=== PATIENT | female | born 1935 ===

== ENCOUNTER 2017-04-04 20:47 | Emergency (ER) | payer MEDICARE, MEDICAID ==
[2017-04-04 23:21] LABS: BASO # 0.1 K/uL (0.0-0.2); BASO % 0.7 % (0.0-2.0); EOS # 0.1 K/uL (0.0-0.7); EOS % 1.2 % (0.0-4.0); HEMATOCRIT 32.1 % (34.0-47.0); LYMPH # 1.4 K/uL (1.0-4.3); LYMPH % 18.2 % (20.0-40.0); MEAN CELL VOLUME 87.3 fL (81.0-99.0); MEAN CORPUSCULAR HEMOGLOBIN 28.9 pg (27.0-31.0); MEAN CORPUSCULAR HGB CONC 33.1 g/dL (33.0-37.0); MEAN PLATELET VOLUME 10.1 fL (7.2-11.7); MONO # 0.6 K/uL (0.0-0.8); MONO % 8.4 % (0.0-10.0); RED CELL DISTRIBUTION WIDTH 14.9 % (11.5-14.5); WHITE BLOOD COUNT 7.6 K/uL (4.8-10.8)
[2017-04-04 23:44] LABS: CHLORIDE 103 mmol/L (98-107); SODIUM 137 mmol/L (132-148)
[2017-04-04 23:45] LABS: POTASSIUM 4.3 mmol/L (3.6-5.2)
[2017-04-04 23:46] LABS: GFR AFRICAN-AMERICAN > 60
[2017-04-04 23:47] LABS: ALKALINE PHOSPHATASE 75 U/L (38-126); ALT/SGPT 24 U/L (9-52); BLOOD UREA NITROGEN 25 mg/dL (7-17); GLUCOSE,RANDOM 89 mg/dL (65-105)
[2017-04-04 23:51] LABS: ALB/GLOB RATIO 1.5 (1.0-2.1); AST/SGOT 27 U/L (14-36); BILIRUBIN,TOTAL 0.5 mg/dL (0.2-1.3); CARBON DIOXIDE 26 mmol/L (22-30); TOTAL PROTEIN 6.7 g/dL (6.3-8.3)
--- NOTE | 2017-04-05 00:08 | C.PDOC ---
History Of Present Illness pt was hot in the house and started to sweat. Denies any chest pain now. Speaking in complete sentences. No f/c/n/v. Feels thirsty Time Seen by Provider: 04/05/17 00:08 Chief Complaint (Nursing): Chest Pain History Per: Patient History/Exam Limitations: no limitations Onset/Duration Of Symptoms: Hrs Current Symptoms Are (Timing): Gone Context: Other Severity: None Pain Scale Rating Of: 0 Modifying Factors: None Exacerbating Factors: None Alleviating Factors: None Recent travel outside of the [place]: No Additional History Per: Family Past Medical History Reviewed: Historical Data, Nursing Documentation, Vital Signs Vital Signs: Last Vital Signs Temp 98.6 F 04/04/17 21:09 Pulse 80 04/04/17 21:09 Resp 20 04/04/17 21:09 BP 145/74 04/04/17 21:09 Pulse Ox 97 04/05/17 01:42 - Medical History PMH: Arthritis, HTN, Hypercholesterolemia Surgical History: Hernia Repair - [facility] Procedures INCIS HERNIA REPAIR-GRFT (01/27/00) OTHER SKIN & SUBQ I D (07/18/14) Family History: States: Unknown Family Hx - Social History Hx Tobacco Use: No Hx Alcohol Use: No Hx Substance Use: No - Immunization History Hx Tetanus Toxoid Vaccination: No Hx Influenza Vaccination: Yes (07/21/2016) Hx Pneumococcal Vaccination: Yes (2014) Review Of Systems Constitutional: Negative for: Fever, Chills Eyes: Negative for: Redness Cardiovascular: Negative for: Chest Pain Respiratory: Positive for: Shortness of Breath Gastrointestinal: Positive for: Nausea. Negative for: Vomiting, Abdominal Pain Genitourinary: Negative for: Dysuria Musculoskeletal: Negative for: Back Pain Skin: Negative for: Rash, Lesions, Jaundice Neurological: Negative for: Weakness Psych: Negative for: Anxiety Physical Exam - Physical Exam Appears: Non-toxic, No Acute Distress Skin: Warm, Dry Head: Normacephalic Eye(s): bilateral: Normal Inspection Oral Mucosa: Dry Neck: Trachea Midline, Supple Chest: Symmetrical Cardiovascular: Rhythm Regular Respiratory: No Rales, No Rhonchi, No Wheezing Gastrointestinal/Abdominal: Soft, No Tenderness, No Distention Back: No CVA Tenderness Extremity: Normal ROM Extremity: Bilateral: Atraumatic Neurological/Psych: Oriented x3, Normal Speech, Normal Cognition Gait: With Assistance (cane) ED Course And Treatment - Laboratory Results Result Diagrams: 04/04/17 23:16 04/04/17 23:16 ECG: Interpreted By Me, Viewed By Me ECG Rhythm: Sinus Rhythm (74), Nonspecific Changes O2 Sat by Pulse Oximetry: 97 Pulse Ox Interpretation: Normal - Radiology CXR: Interpreted by Me, Viewed By Me CXR Interpretation: No: Infiltrates, Fracture, Pnemothorax Medical Decision Making Medical Decision Making: I considered the following diagnoses: acute coronary syndrome, pulmonary embolism, lower respiratory infection, aortic dissection/aneurysm, pneumothorax , pericarditis, esophagitis/GERD, zoster and esophageal rupture but found them to be unlikely based on the history, physical exam, and diagnostics. My conclusions regarding the unlikely diagnoses were based on: the absence of significant EKG abnormalities, the lack of suggestive x-ray findings, the absence of significant abnormalities on cardiac monitoring, the absence of asymmetric pulses. Upon provider reevaluation patient is feeling better, is medically stable, and requires no further treatment in the ED at this time. Patient will be discharged home . Counseling was provided and all questions were answered regarding diagnosis and need for follow up with dr live. There is agreement to discharge plan. Return if symptoms persist or worsen. Disposition Counseled Patient/Family Regarding: Studies Performed, Diagnosis, Need For Followup - Disposition Disposition: HOME/ ROUTINE Disposition Time: 00:08 Condition: FAIR Additional Instructions: Please return if symptoms recur Instructions: Dehydration (DC) - Clinical Impression Clinical Impression: Dehydration
[2017-04-05] MEDS ORDERED: Aspirin 325 mg EC Tablets PO STA (00:27)
[2017-04-05 02:09] LABS: RBC URINE 1 /hpf (0-3); URINE BILIRUBIN NEGATIVE (NEGATIVE); URINE BLOOD NEGATIVE (NEGATIVE); URINE COLOR Yellow (YELLOW); URINE GLUCOSE (UA) NORMAL (Normal); URINE KETONE NEGATIVE (NEGATIVE); URINE LEUKOCYTE ESTERASE 1+ Leu/uL (Negative); URINE PROTEIN NEGATIVE (NEGATIVE); URINE UROBILINOGEN NORMAL mg/dL (0.2-1.0); WBC URINE 8 /hpf (0-5)
[2017-04-05 02:16] VITALS: BP 162/77; PULSE 73; RESP 16; TEMP 97.8; O2SAT 99
--- NOTE | 2017-04-05 09:36 | RAD ---
PROCEDURE: CHEST RADIOGRAPH, 1 VIEW HISTORY: Chest pain COMPARISON: 11/07/2015. FINDINGS: LUNGS: The lungs are well inflated and clear. PLEURA: No pneumothorax or pleural fluid seen. CARDIOVASCULAR: Normal. OSSEOUS STRUCTURES: No significant abnormalities. VISUALIZED UPPER ABDOMEN: Normal. OTHER FINDINGS: None. IMPRESSION: No active pulmonary disease.
== END 2017-04-05 02:16 | disposition home or self-care (01) ==
LOC: C.ER 20:47
DX: E86.0 Dehydration (principal)

== ENCOUNTER 2018-06-01 10:17 | Emergency (ER) | payer MEDICARE, MEDICAID ==
[2018-06-01 10:26] VITALS: BMI 25.4
[2018-06-01 10:30] VITALS: TEMP 98.2
--- NOTE | 2018-06-01 10:41 | C.PDOC ---
History Of Present Illness 83 y/o female with PMHx significant for hypertension and osteoarthritis, presents to the ED complaining of pain and swelling to the bilateral lower extremities, greater on the left, for 1 month. She notes the left lower extremity becomes very swollen, tight, and painful at the end of each day. Requesting a bilateral doppler study. States she gets them occasionally to check her circulation. Pain is described as constant, worse at night, and rated a 4/10. No fever, chills, nausea, vomiting, chest pain, or SOB. Time Seen by Provider: 06/01/18 10:40 Chief Complaint (Nursing): Lower Extremity Problem/Injury History Per: Patient History/Exam Limitations: no limitations Onset/Duration Of Symptoms: Days Current Symptoms Are (Timing): Still Present Pain Scale Rating Of: 4 Past Medical History Reviewed: Historical Data, Nursing Documentation, Vital Signs Vital Signs: Last Vital Signs Temp 98.2 F 06/01/18 10:26 Pulse 91 H 06/01/18 10:26 Resp 18 06/01/18 10:26 BP 121/79 06/01/18 10:26 Pulse Ox 96 06/01/18 12:42 - Medical History PMH: Arthritis, HTN, Hypercholesterolemia Surgical History: Hernia Repair - [facility] Procedures INCIS HERNIA REPAIR-GRFT (01/27/00) OTHER SKIN & SUBQ I D (07/18/14) Family History: States: Unknown Family Hx - Social History Hx Tobacco Use: No Hx Alcohol Use: No Hx Substance Use: No - Immunization History Hx Tetanus Toxoid Vaccination: No Hx Influenza Vaccination: No (07/21/2016) Hx Pneumococcal Vaccination: No (2014) Review Of Systems Except As Marked, All Systems Reviewed And Found Negative. Constitutional: Negative for: Fever, Chills Cardiovascular: Negative for: Chest Pain Respiratory: Negative for: Shortness of Breath Gastrointestinal: Negative for: Nausea, Vomiting Musculoskeletal: Positive for: Leg Pain (and swelling to bilateral lower extremities, left greater than right) Neurological: Negative for: Weakness, Numbness, Incoordination Physical Exam - Physical Exam Appears: Non-toxic, No Acute Distress, Other (Mildly obese) Skin: Normal Color, Warm, No Rash Head: Atraumatic, Normacephalic Eye(s): bilateral: Normal Inspection Oral Mucosa: Moist Neck: Normal ROM, Supple Chest: Symmetrical Cardiovascular: Rhythm Regular, No Murmur Respiratory: Normal Breath Sounds, No Rales, No Rhonchi, No Wheezing Gastrointestinal/Abdominal: Soft, No Tenderness, No Distention Extremity: Normal ROM, Calf Tenderness (Mild tenderness to posterior left calf) , No Deformity, Swelling (Left lower extremity with non-pitting edema from the knee down into the foot) Pulses: Left Dorsalis Pedis: Normal, Right Dorsalis Pedis: Normal Neurological/Psych: Oriented x3, Normal Speech Gait: Steady (patient is ambulatory) ED Course And Treatment O2 Sat by Pulse Oximetry: 96 (RA) Pulse Ox Interpretation: Normal Medical Decision Making Medical Decision Making: Impression: Lower extremity swelling, left greater than right Plan: * Bilateral Doppler studies ordered Progress/Updates: Doppler studies negative for DVT. Patient informed of results, and provided with copy of report. Patient is stable for discharge home. Advised to follow up with PMD for further evaluation. Disposition Counseled Patient/Family Regarding: Studies Performed, Diagnosis, Need For Followup - Disposition Referrals: Tommy Shirley DO [Staff Provider] - Disposition: HOME/ ROUTINE Disposition Time: 12:41 Condition: STABLE Instructions: Osteoarthritis (DC) Forms: [facility] (Mosotho), General Discharge Instructions - POA Present On Arrival: None - Clinical Impression Clinical Impression: Osteoarthritis - Scribe Statement The provider has reviewed the documentation as recorded by the Scribe (Lashanda Elder) Provider Attestation: All medical record entries made by the Scribe were at my direction and personally dictated by me. I have reviewed the chart and agree that the record accurately reflects my personal performance of the history, physical exam, medical decision making, and the department course for this patient. I have also personally directed, reviewed, and agree with the discharge instructions and disposition.
[2018-06-01 13:19] VITALS: BP 119/69; PULSE 70; RESP 16; O2SAT 98
--- NOTE | 2018-06-03 15:56 | VASCLAB ---
Date of service: 06/01/2018 PROCEDURE: Lower Extremity Venous Duplex Exam. HISTORY: pain and swelling left more than right PRIORS: None. TECHNIQUE: Bilateral common femoral, femoral, popliteal and posterior tibial, peroneal and great saphenous veins were evaluated. Flow was assessed with color Doppler, compressibility, assessment of phasic flow and augmentation response. Report prepared by John Patel, JAGJIT, RVT FINDINGS: RIGHT: 1. Common Femoral Vein: 1.1. Compressibility - Fully compressible: Thrombus - None : Flow - Phasic: Augmentation -Normal: Reflux - None. 2. Femoral Vein: 2.1. Compressibility - Fully compressible: Thrombus - None : Flow - Phasic: Augmentation -Normal: Reflux - None. 3. Popliteal Vein: 3.1. Compressibility - Fully compressible: Thrombus - None : Flow - Phasic: Augmentation -Normal: Reflux - Severe. 4. Posterior Tibial Vein: 4.1. Compressibility - Fully compressible: Thrombus - None: Flow - Phasic: Augmentation -Normal: Reflux - None. 5. Peroneal Vein: 5.1. Compressibility - Fully compressible: Thrombus - None: Flow - Phasic: Augmentation -Normal: Reflux - None. 6. Great Saphenous Vein: 6.1. Compressibility - Fully compressible: Thrombus - None: Flow - Phasic: Augmentation - Normal: Reflux - None. LEFT: 1. Common Femoral Vein: 1.1. Compressibility - Fully compressible: Thrombus - None: Flow - Phasic: Augmentation -Normal: Reflux - None. 2. Femoral Vein: 2.1. Compressibility - Fully compressible: Thrombus - None: Flow - Phasic: Augmentation -Normal: Reflux - None. 3. Popliteal Vein: 3.1. Compressibility - Fully compressible: Thrombus - None : Flow - Phasic: Augmentation -Normal: Reflux - None. 4. Posterior Tibial Vein: 4.1. Compressibility - Fully compressible: Thrombus - None: Flow - Phasic: Augmentation -Normal: Reflux - None. 5. Peroneal Vein: 5.1. Compressibility - Fully compressible: Thrombus - None: Flow - Phasic: Augmentation -Normal: Reflux - None. 6. Great Saphenous Vein: 6.1. Compressibility - Fully compressible: Thrombus - None: Flow - Phasic: Augmentation - Normal: Reflux - None. OTHER FINDINGS: Right: None significant. Left: None significant. IMPRESSION: Right: No evidence of deep or superficial vein thrombosis of the right lower extremity. 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 Left: No evidence of deep or superficial vein thrombosis of the left lower extremity. Normal valve function noted of the left side.
== END 2018-06-01 13:18 | disposition home or self-care (01) ==
LOC: C.ER 10:17
DX: M19.90 Unspecified osteoarthritis, unspecified site (principal); E78.00 Pure hypercholesterolemia, unspecified; I10 Essential (primary) hypertension

== ENCOUNTER 2018-12-06 07:30 | Emergency (ER) | payer MEDICARE, MEDICAID ==
[2018-12-06 07:30] VITALS: BMI 25.4
[2018-12-06 07:39] VITALS: RESP 20; TEMP 98.3; O2SAT 98
[2018-12-06] MEDS ORDERED: Sodium Chloride 0.9% 1,000 ML IV ONE (08:09)
[2018-12-06] MEDS ORDERED: Sodium Chloride 0.9% 1,000 ML ONE (08:22)
--- NOTE | 2018-12-06 08:22 | C.PDOC ---
History Of Present Illness 83 yo female w/PMHx of HTN, OA, intermittent diarrhea in past, come in for evaluation of watery diarrhea for past 3 days " all I eat or drink, go to bathroom right away", (+) decrease appetite. Otherwise, pt denies fever, chills, recent illness or abx use, denies headache, dizziness, weakness, CP, SOB, dyspnea, palpitation, abd. pain, vomiting, denies melena, hematoschezia, back pain, UTI sx, denies recent travel. At the time of evaluation, appears comfortable, not in any apparent distress. Time Seen by Provider: 12/06/18 07:54 Chief Complaint (Nursing): Abdominal Pain History Per: Patient Past Medical History Reviewed: Historical Data, Nursing Documentation, Vital Signs Vital Signs: Last Vital Signs Temp 98.3 F 12/06/18 07:34 Pulse 93 H 12/06/18 07:34 Resp 20 12/06/18 07:34 BP 134/66 12/06/18 07:34 Pulse Ox 98 12/06/18 07:34 - Medical History PMH: Arthritis, HTN, Hypercholesterolemia Surgical History: Hernia Repair - [facility] Procedures INCIS HERNIA REPAIR-GRFT (01/27/00) OTHER SKIN & SUBQ I D (07/18/14) Family History: States: Unknown Family Hx - Social History Hx Tobacco Use: No Hx Alcohol Use: No Hx Substance Use: No - Immunization History Hx Tetanus Toxoid Vaccination: No Hx Influenza Vaccination: No (07/21/2016) Hx Pneumococcal Vaccination: No (2014) Review Of Systems Except As Marked, All Systems Reviewed And Found Negative. Constitutional: Negative for: Fever ENT: Negative for: Throat Pain Cardiovascular: Negative for: Chest Pain, Palpitations, Edema, Light Headedness Respiratory: Negative for: Cough, Shortness of Breath, Wheezing Gastrointestinal: Positive for: Diarrhea. Negative for: Nausea, Vomiting, Abdominal Pain, Melena, Hematochezia, Hematemesis, Rectal Pain Genitourinary: Negative for: Dysuria Skin: Negative for: Rash Neurological: Negative for: Altered Mental Status Physical Exam - Physical Exam Appears: Well, Non-toxic, No Acute Distress Skin: Normal Color, Warm, Dry Eye(s): bilateral: PERRL Nose: No Flaring Oral Mucosa: Moist Neck: Trachea Midline, Supple Cardiovascular: Rhythm Regular, No Murmur, No JVD Respiratory: No Decreased Breath Sounds, No Accessory Muscle Use, No Stridor, No Wheezing Gastrointestinal/Abdominal: Soft, No Tenderness, No Distention, No Guarding, No Rebound Back: No CVA Tenderness Extremity: Normal ROM, No Pedal Edema, No Swelling Neurological/Psych: Oriented x3, Normal Speech ED Course And Treatment - Laboratory Results Result Diagrams: 12/06/18 08:28 12/06/18 08:28 Lab Interpretation: No Acute Changes O2 Sat by Pulse Oximetry: 98 Pulse Ox Interpretation: Normal - Other Rad Obstructive serial X-Ray: Interpreted by Me, Viewed By Me Interpretation: (-) air-fluid level Progress Note: Pt ws OBS in ED for 3 hours and remained stable during th ED observation. Pt is ambulatory, no episode of diarrhea noted while in ED, pt was unable to give stool sample. Pt had PO challenge in ED, tolearte well. On re- eval, pt is afebrile, hemodynamicaly stable. NOn-toxic. Neck: SUpple. Lungs: CTA B/L, BS equal B/L. CVS: (+)S1S2, reg, (-) murmur. AbdL benign, (-) guarding, (-) rebound, (-) localized tenderness. Neurologicaly intact. Blood work review and appears without acute abnormalities. No evidence of anemia, dehydration. Imaging review (-) evidence of obstruction. Pt advised on course of ds. STool container given, if no improvement or any worsening- return to ED immediately for re-evaluation. Pt understand and agrees with plan. Disposition Counseled Patient/Family Regarding: Studies Performed, Diagnosis, Need For Followup, Rx Given - Disposition Referrals: Tommy Shirley DO [Staff Provider] - Misael Osborn MD [Staff Provider] - Disposition: HOME/ ROUTINE Disposition Time: 11:00 Condition: STABLE Additional Instructions: Encourage fluids BRAT diet- banana, rice, apple sauce, rice If any worsening or no improvement in diarrhea, return to ED and bring stool sample for further evaluation Otherwise, follow up with PMD, GI in 2 -3 days for re-evaluation, possible colonoscopy as need. Prescriptions: Famotidine [Pepcid] 20 mg PO BID #10 tab Pantoprazole Sodium [Protonix] 40 mg PO DAILY #20 ect Instructions: Diarrhea in Adolescents and Adults Forms: [facility] (Kyrgyz) Print Language: ARABIC - Clinical Impression Clinical Impression: Diarrhea
[2018-12-06 08:45] LABS: BASO % 0.6 % (0.0-2.0); EOS # 0.1 K/uL (0.0-0.7); EOS % 2.3 % (0.0-4.0); HEMOGLOBIN 11.6 g/dL (11.0-16.0); LYMPH # 1.6 K/uL (1.0-4.3); LYMPH % 26.1 % (20.0-40.0); MEAN CELL VOLUME 86.6 fL (81.0-99.0); MEAN CORPUSCULAR HEMOGLOBIN 28.2 pg (27.0-31.0); MEAN CORPUSCULAR HGB CONC 32.6 g/dL (33.0-37.0); MEAN PLATELET VOLUME 10.1 fL (7.2-11.7); MONO # 0.5 K/uL (0.0-0.8); MONO % 8.7 % (0.0-10.0); NEUT # 3.8 K/uL (1.8-7.0); NEUT % 62.3 % (50.0-75.0); NRBC % 0.1 % (0.0-2.0); RBC 4.12 Mil/uL (3.80-5.20); RED CELL DISTRIBUTION WIDTH 15.8 % (11.5-14.5)
[2018-12-06 08:53] LABS: ALB/GLOB RATIO 1.7 (1.0-2.1); ALBUMIN 4.7 g/dL (3.5-5.0); ALT/SGPT 25 U/L (9-52); AST/SGOT 36 U/L (14-36); BLOOD UREA NITROGEN 26 mg/dL (7-17); CALCIUM 9.6 mg/dl (8.6-10.4); GFR NON-AFRICAN AMERICAN 47; LIPASE 103 U/L (23-300)
[2018-12-06 10:26] LABS: URINE BILIRUBIN NEGATIVE (NEGATIVE); URINE BLOOD NEGATIVE (NEGATIVE); URINE CLARITY Clear (Clear); URINE COLOR Yellow (YELLOW); URINE GLUCOSE (UA) NORMAL (Normal); URINE LEUKOCYTE ESTERASE NEG Leu/uL (Negative); URINE PROTEIN NEGATIVE (NEGATIVE); URINE UROBILINOGEN NORMAL mg/dL (0.2-1.0)
[2018-12-06 10:40] VITALS: BP 117/68; PULSE 71
--- NOTE | 2018-12-06 13:30 | RAD ---
Date of service: 12/06/2018 PROCEDURE: Radiographs of the chest and abdomen (obstructive series) HISTORY: abd pain COMPARISON: 07/26/2016. Obstruction series TECHNIQUE: AP radiograph of the chest, with upright and supine radiographs of the abdomen. FINDINGS: CHEST: Lungs: Clear. Cardiovascular: Normal size heart. No pulmonary vascular congestion. No aortic atherosclerotic calcification present Pleura: No pleural fluid. No pneumothorax. Other findings: None. ABDOMEN AND PELVIS: Bowel: Unremarkable bowel gas pattern. No evidence of mechanical obstruction. Free air: None. Bones: Unremarkable. Other findings: None. IMPRESSION: Unremarkable radiographs of chest and abdomen. No evidence of mechanical bowel obstruction.
== END 2018-12-06 11:43 | disposition home or self-care (01) ==
LOC: C.ER 07:30
DX: R19.7 Diarrhea, unspecified (principal); E78.00 Pure hypercholesterolemia, unspecified; I10 Essential (primary) hypertension; M19.90 Unspecified osteoarthritis, unspecified site
CPT/HCPCS: 74022; 80053; 81001; 83690; 84484; 85025; 85610; 85730; 96361; 96374; 96375; 99285; C9113; J2405; J7030

== ENCOUNTER 2019-03-11 13:34 | Outpatient (CLI) | payer MEDICARE, MEDICAID | END 2019-03-11 13:35 | disposition home or self-care (01) | LOC: C.USIC 13:34 ==

== ENCOUNTER 2019-03-19 09:58 | Emergency (ER) | payer MEDICARE, MEDICAID ==
[2019-03-19 09:58] VITALS: BMI 25.4
[2019-03-19] MEDS ORDERED: Sodium Chloride 0.9% 500 ML IV ONE (10:27)
[2019-03-19] MEDS ORDERED: Acetaminophen 650mg/20.3ml solution UD PO STA (10:27)
[2019-03-19 11:02] LABS: BASO % 0.7 % (0.0-2.0); EOS # 0.1 K/uL (0.0-0.7); EOS % 2.6 % (0.0-4.0); HEMOGLOBIN 10.2 g/dL (11.0-16.0); LYMPH # 0.9 K/uL (1.0-4.3); LYMPH % 21.1 % (20.0-40.0); MEAN CELL VOLUME 88.1 fL (81.0-99.0); MEAN CORPUSCULAR HEMOGLOBIN 30.2 pg (27.0-31.0); MEAN CORPUSCULAR HGB CONC 34.2 g/dL (33.0-37.0); MEAN PLATELET VOLUME 9.7 fL (7.2-11.7); MONO # 0.3 K/uL (0.0-0.8); MONO % 7.6 % (0.0-10.0); NEUT # 2.9 K/uL (1.8-7.0); RBC 3.4 Mil/uL (3.80-5.20); RED CELL DISTRIBUTION WIDTH 16.4 % (11.5-14.5); WHITE BLOOD COUNT 4.2 K/uL (4.8-10.8)
[2019-03-19 11:13] LABS: PARTIAL THROMBOPLASTIN TIME 30.6 SECONDS (21-34); PROTHROMBIN TIME 11.2 SECONDS (9.7-12.2)
[2019-03-19 11:16] LABS: ALB/GLOB RATIO 1.8 (1.0-2.1); ALBUMIN 4.2 g/dL (3.5-5.0); ALT/SGPT 19 U/L (9-52); AST/SGOT 28 U/L (14-36); BILIRUBIN,DIRECT 0.1 mg/dL (0.0-0.4); BLOOD UREA NITROGEN 21 mg/dL (7-17); CALCIUM 8.8 mg/dl (8.6-10.4); GFR NON-AFRICAN AMERICAN 53; LIPASE 76 U/L (23-300)
--- NOTE | 2019-03-19 11:22 | C.PDOC ---
History Of Present Illness 83 y/o female,w/PMhx of diabetes and HTN, presents to the ER complaining of diarrhea which has been present for the past 2 weeks. Patient states that she has associated cramping abdominal pain. Patient reports that she was evaluated by her PMD and she was prescribed medication (unknown). Denies having fever,chills, nausea, vomiting, and recent abx use. Time Seen by Provider: 03/19/19 10:14 Chief Complaint (Nursing): GI Problem History Per: Patient History/Exam Limitations: no limitations Onset/Duration Of Symptoms: Days Current Symptoms Are (Timing): Still Present Severity: Moderate Past Medical History Reviewed: Historical Data, Nursing Documentation, Vital Signs Vital Signs: Last Vital Signs Temp 98.1 F 03/19/19 10:27 Pulse 72 03/19/19 10:27 Resp 20 03/19/19 10:27 BP 137/70 03/19/19 10:27 Pulse Ox 97 03/19/19 10:27 - Medical History PMH: Arthritis, Gastritis, HTN, Hypercholesterolemia Surgical History: Hernia Repair - [facility] Procedures INCIS HERNIA REPAIR-GRFT (01/27/00) OTHER SKIN & SUBQ I D (07/18/14) Family History: States: No Known Family Hx - Social History Hx Tobacco Use: No Hx Alcohol Use: No Hx Substance Use: No - Immunization History Hx Tetanus Toxoid Vaccination: No Hx Influenza Vaccination: No (07/21/2016) Hx Pneumococcal Vaccination: No (2014) Review Of Systems Except As Marked, All Systems Reviewed And Found Negative. Constitutional: Negative for: Fever, Chills Gastrointestinal: Positive for: Abdominal Pain, Diarrhea. Negative for: Nausea, Vomiting Physical Exam - Physical Exam Appears: Non-toxic, No Acute Distress Skin: Normal Color, Warm, Dry Head: Atraumatic, Normacephalic Eye(s): bilateral: Normal Inspection Nose: Normal Oral Mucosa: Moist Neck: Supple Chest: Symmetrical Cardiovascular: Rhythm Regular Respiratory: Normal Breath Sounds, No Rales, No Rhonchi, No Wheezing Gastrointestinal/Abdominal: Soft, Tenderness (mild non-focal tenderness), No Guarding, No Rebound Neurological/Psych: Oriented x3, Normal Speech ED Course And Treatment - Laboratory Results Result Diagrams: 03/19/19 10:51 03/19/19 10:51 Lab Results: PT 11.2 SECONDS (9.7-12.2) 03/19/19 10:51 INR 1.0 03/19/19 10:51 APTT 30.6 SECONDS (21-34) 03/19/19 10:51 Total Bilirubin 0.4 mg/dL (0.2-1.3) 03/19/19 10:51 Direct Bilirubin 0.1 mg/dL (0.0-0.4) 03/19/19 10:51 AST 28 U/L (14-36) 03/19/19 10:51 ALT 19 U/L (9-52) 03/19/19 10:51 Alkaline Phosphatase 62 U/L (38-126) 03/19/19 10:51 Total Protein 6.5 g/dL (6.3-8.3) 03/19/19 10:51 Albumin 4.2 g/dL (3.5-5.0) 03/19/19 10:51 Globulin 2.3 gm/dL (2.2-3.9) 03/19/19 10:51 Albumin/Globulin Ratio 1.8 (1.0-2.1) 03/19/19 10:51 Lipase 76 U/L (23-300) 03/19/19 10:51 O2 Sat by Pulse Oximetry: 97 (RA) Pulse Ox Interpretation: Normal - CT Scan/US CT-Abd & Pelv. Other Rad Studies (CT/US): Read By Radiologist, Radiology Report Reviewed CT/US Interpretation: Date of service: 03/19/2019. PROCEDURE: CT Abdomen and Pelvis without intravenous contrast. HISTORY: Abdominal pain and diarrhea. COMPARISON: None. TECHNIQUE: CT scan of the abdomen and pelvis was performed without administration of intravenous contrast. Oral contrast was not administered. Coronal and sagittal reformatted images were obtained. Radiation dose: Total exam DLP = 254.45 mGy-cm. This CT exam was performed using one or more of the following dose reduction techniques: Automated exposure control, ad justment of the mA and/or kV according to patient size, and/or use of iterative reconstruction technique. FINDINGS: LOWER THORAX: There is a small calcified granuloma in the right lung base, otherwise the visualized lungs are clear. There is mild anterior pericardial thickening. LIVER: Normal in size. No gross lesion or ductal dilatation. GALLBLADDER AND BILE DUCTS: There is a solitary subcentimeter calcified gallstone. No common bile duct dilatation. PANCREAS: Normal in size. No gross lesion or ductal dilatation. SPLEEN: Normal in size. ADRENALS: Normal in size. No discrete nodule. KIDNEYS AND URETERS: Both kidneys are normal in size. No hydronephrosis or nephrolithiasis. There is a 2.6 x 2.1 cm simple cyst in the upper pole of the left kidney. VASCULATURE: Normal in caliber. No aortic aneurysm. There are aortic atherosclerotic calcifications present. BOWEL: Evaluation of the bowel is limited in the absence of oral contrast. There are fluid-filled mildly dilated small bowel loops and fluid in the colon. There are small air-fluid levels. There are postsurgical changes in the cecum. APPENDIX: Not distinctly identified. PERITONEUM: No free fluid. No free air. LYMPH NODES: No enlarged lymph nodes. BLADDER: Partially distended and grossly normal in appearance. REPRODUCTIVE: The uterus is surgically absent. BONES: No acute fracture. There is advanced degenerative disc disease at L5-S1 with mild degenerative retrolisthesis of L5 on S1. There is diffuse bone demineralization. OTHER FINDINGS: There is a small sliding hiatal hernia. IMPRESSION: Findings are most compatible with nonspecific acute infectious/inflammatory enterocolitis. No evidence for bowel obstruction. Cholelithiasis. 2.6 x 2.1 cm simple cyst in the upper pole of the left kidney. Medical Decision Making Medical Decision Making: ro colitis gastroenterits, Plan: --Labs --UA --CT- Abd & Pelv. --Occult Stool --IV Fluids --Tylenol PO labs neg. ct neg. no leukocytosis. suspect viral stool cultures sent stabel for dc. abd soft nottp. Disposition - Disposition Referrals: [facility] [Outside] [facility] [Outside] Misael Osborn MD [Staff Provider] - Disposition: HOME/ ROUTINE Disposition Time: 14:00 Condition: GOOD Additional Instructions: return to er with worsening. Instructions: Viral Gastroenteritis, Adult (DC) Forms: [employer] (Azeri) - Clinical Impression Clinical Impression: Diarrhea - Scribe Statement The provider has reviewed the documentation as recorded by the Scribe Liam Sutton Provider Attestation: All medical record entries made by the Scribe were at my direction and personally dictated by me. I have reviewed the chart and agree that the record accurately reflects my personal performance of the history, physical exam, medical decision making, and the department course for this patient. I have also personally directed, reviewed, and agree with the discharge instructions and disposition.
[2019-03-19 12:06] LABS: URINE BILIRUBIN NEGATIVE (NEGATIVE); URINE BLOOD NEGATIVE (NEGATIVE); URINE CLARITY Clear (Clear); URINE COLOR Amber (YELLOW); URINE GLUCOSE (UA) NORMAL (Normal); URINE LEUKOCYTE ESTERASE NEG Leu/uL (Negative); URINE PROTEIN NEGATIVE (NEGATIVE); URINE UROBILINOGEN NORMAL mg/dL (0.2-1.0)
[2019-03-19 14:00] VITALS: BP 164/69; PULSE 82; RESP 16; TEMP 97.9
[2019-03-19 14:02] VITALS: O2SAT 97
== END 2019-03-19 14:10 | disposition home or self-care (01) ==
LOC: C.ER 09:58
DX: R19.7 Diarrhea, unspecified (principal); E11.9 Type 2 diabetes mellitus without complications; I10 Essential (primary) hypertension; E78.00 Pure hypercholesterolemia, unspecified
CPT/HCPCS: 74176; 80053; 81001; 82248; 83690; 85025; 85610; 85730; 87045; 87177; 87209; 87230; 99285; J7040